=== PATIENT | male | born 1995 | race Caucasian/White ===

== ENCOUNTER 2020-07-13 00:16 | Inpatient (IN) | payer BC, SELFPAY ==
[~2020-07-13] VITALS: Ht 167.6 cm; Wt 81.6 kg
[2020-07-13 00:29] VITALS: BP 120/86
--- NOTE | 2020-07-13 00:33 | NUR ---
Dr. Maxwell examining patient.
[2020-07-13] MEDS ORDERED: ONDANSETRON 4 MG/2 ML VIAL IVP ONE (00:35)
[2020-07-13] MEDS ORDERED: MORPHINE SULFATE 4 MG/ML SYR IVP ONE ×2 (00:35→01:50)
[2020-07-13 00:48] LABS: BASOPHILS % (AUTO) 0.2 % (0.0-2.0); EOSINOPHILS % (AUTO) 0.1 % (0.0-4.0); HEMATOCRIT 43.1 % (36-52); HEMOGLOBIN 14.8 g/dL (12.0-18.0); LYMPHOCYTES # (AUTO) 1.5 K/uL (2.0-11.5); LYMPHOCYTES % (AUTO) 8.9 % (20.5-51.1); MEAN CORPUSCULAR HEMOGLOBIN 32 pg (27-31); MEAN CORPUSCULAR HGB CONC 34 g/dL (33-37); MEAN CORPUSCULAR VOLUME 93.4 fL (80-94); MONOCYTES % (AUTO) 5.7 % (1.7-9.3); NEUTROPHILS # (AUTO) 14.4 K/uL (1.8-7.7); NEUTROPHILS % (AUTO) 85.1 % (42.2-75.2); PLATELET COUNT (AUTO) 190 K/uL (140-450); RED BLOOD CELL COUNT(AUTO) 4.62 MIL/uL (4.20-6.10); RED CELL DISTRIBUTION WIDTH 13.9 % (11.6-13.7); WHITE BLOOD COUNT (AUTO) 16.9 K/uL (4.8-10.8)
--- NOTE | 2020-07-13 00:59 | NUR ---
PT TAKEN TO CT SCAN VIA WHEELCHAIR
[2020-07-13 01:12] LABS: ALBUMIN 4.2 g/dL (3.4-5.0); ANION GAP 14.5 (8-16); CARBON DIOXIDE 26.1 mmol/L (21-32); CREATININE 0.9 mg/dL (0.6-1.3); POTASSIUM 3.6 mmol/L (3.5-5.1); TOTAL BILIRUBIN 0.7 mg/dL (0.0-1.0)
[2020-07-13] MEDS ORDERED: metroNIDAZOLE 500 MG/NS PREMIX 100 ML IV ONE (01:45)
[2020-07-13] MEDS ORDERED: NACL 0.9% 1,000 ML IV ONE ×2 (01:45→03:30)
[2020-07-13] MEDS ORDERED: cefTRIAXone 1,000 MG VIAL ONE (01:55)
--- NOTE | 2020-07-13 02:49 | NUR ---
JEAN MARIE SWAB COLLECTED AND SENT TO LAB
[2020-07-13] MEDS ORDERED: MORPHINE SULFATE 10 MG/ML VIAL IVP ONE (03:30)
--- NOTE | 2020-07-13 04:12 | NUR ---
PT RESTING IN BED, EYES CLOSED, RESPIRATIONS EVEN AND UNLABORED. CHEST RISE IS SYMMETRICAL. WILL CONTINUE TO MONITOR.
--- NOTE | 2020-07-13 05:00 | NUR ---
PT AMBULATED TO RESTROOM, STEADY GAIT
--- NOTE | 2020-07-13 05:02 | NUR ---
PT RETURNED TO [facility], STEADY GAIT
[2020-07-13] MEDS ORDERED: EMTR1TAB13 PO (06:45)
--- NOTE | 2020-07-13 07:03 | NUR ---
REPORT GIVEN TO MELVIN BARRAGAN FOR CONTINUITY OF CARE
[2020-07-13 08:10] VITALS: BP 123/51
--- NOTE | 2020-07-13 08:10 | NUR ---
PT TAKEN TO OR WITH YUNG GUALLPA AND YUNG MOLINA VIA [facility]DIS.
[2020-07-13] MEDS ORDERED: BUPIVACAINE-MPF/EPI 0.5% 30 ML VIAL INJ ONE (08:23)
[2020-07-13] MEDS ORDERED: LIDOCAINE 2% 100 MG/5 ML SYR IVP ONE (08:45)
[2020-07-13] MEDS ORDERED: fentaNYL citrate 0.05 MG/ML VIAL ONE (08:45)
[2020-07-13] MEDS ORDERED: MIDAZOLAM 2 MG/2 ML VIAL ONE (08:45)
[2020-07-13] MEDS ORDERED: SEVOFLURANE 250 ML BTL INH ONE (08:45)
[2020-07-13] MEDS ORDERED: PROPOFOL 200 MG/20 ML VIAL IV ONE (08:45)
[2020-07-13] MEDS ORDERED: KETOROLAC 30 MG/ML VIAL ONE (08:45)
[2020-07-13] MEDS ORDERED: GLYCOPYRROLATE 0.2 MG/ML VIAL ONE (08:45)
[2020-07-13] MEDS ORDERED: DEXAMETHASONE 4 MG/ML VIAL ONE (08:45)
[2020-07-13] MEDS ORDERED: ROCURONIUM 50 MG/5 ML VIAL IV ONE (08:45)
[2020-07-13] MEDS ORDERED: METOCLOPRAMIDE 10 MG/2 ML INJ VIAL ONE (08:45)
[2020-07-13] MEDS ORDERED: NEOSTIGMINE 1:1000 10 MG/10 ML VIAL ONE (08:45)
[2020-07-13] MEDS ORDERED: SUCCINYLCHOLINE CHLORIDE 200 MG/10 ML VIAL IVP ONE (08:45)
[2020-07-13] MEDS ORDERED: ceFAZolin 1,000 MG VIAL ONE (08:50)
[2020-07-13] MEDS ORDERED: HYDROmorphone 1 MG/ML AMP IVP PRN ×2 (08:55→09:45)
[2020-07-13] MEDS ORDERED: traMADol 50 MG TAB PO SCH (09:00)
[2020-07-13] MEDS ORDERED: POTASSIUM CHLORIDE 10 MEQ TABER PO PRN (09:05)
[2020-07-13] MEDS ORDERED: ACETAMINOPHEN 325 MG TAB PO PRN (09:05)
[2020-07-13] MEDS ORDERED: NACL 0.9% 1,000 ML IV SCH (09:05)
[2020-07-13] MEDS ORDERED: DOCUSATE SODIUM 100 MG GELCAP PO PRN (09:05)
[2020-07-13] MEDS ORDERED: ZOLPIDEM 5 MG TAB PO PRN (09:05)
[2020-07-13] MEDS ORDERED: ONDANSETRON 4 MG/2 ML VIAL IM/IVP PRN (09:05)
[2020-07-13] MEDS ORDERED: guaiFENesin DM 200/20 MG-10 ML 10 ML UDC PO PRN (09:05)
[2020-07-13] MEDS ORDERED: HYDROcodone/APAP 7.5/325 MG 1 TAB PO PRN (09:05)
[2020-07-13] MEDS ORDERED: diphenhydrAMINE 50 MG/ML VIAL IVP PRN (09:45)
[2020-07-13] MEDS ORDERED: LACTATED RINGERS 1,000 ML IV SCH (09:45)
[2020-07-13] MEDS ORDERED: ONDANSETRON 4 MG/2 ML VIAL IVP PRN (09:45)
[2020-07-13] MEDS ORDERED: MEPERIDINE 25 MG/ML SYR IVP PRN (09:45)
--- NOTE | 2020-07-13 10:35 | NUR ---
RECEIVED PT FROM OR NURSE. PT STANDING AND AMBULATING. PT IS STABLE. PT HAS LAC 20G, PT IS S/P LAP APPENDECTOMY WITH 3 ABDOMINAL INCISION WITH DERMABOND IZABEL. INTRODUCE PT TO ROOM. OBTAIN MRSA SWAB. WILL MONITOR PT'S VITAL SIGNS PER POST-OP PROTOCOL. SAFETY MEASURES IN PLACE, WILL CONTINUE TO MONITOR.
[2020-07-13 10:47] LABS: PROTHROMBIN TIME 10.4 secs (10.8-13.4)
[2020-07-13 10:58] LABS: CHOL/HDL RATIO 3.4 (1-4.5); FREE T4 (FREE THYROXINE) 1.1 ng/dL (0.76-1.46); MAGNESIUM 1.5 mg/dL (1.8-2.4); PHOSPHORUS 2.6 mg/dL (2.5-4.9); THYROID STIMULATING HORMONE 0.99 uIU/mL (0.34-3.74)
[2020-07-13] MEDS ORDERED: PIPERACILLIN/TAZOBACTAM 3.375 GM in DEXTROSE 5% 50 ML IV SCH (12:00)
--- NOTE | 2020-07-13 12:11 | NUR ---
PATIENT HAS BEEN SCREENED AND CATEGORIZED MODERATE NUTRITION RISK. PATIENT WILL BE SEEN WITHIN 3-5 DAYS OF ADMISSION. 07/16/20 07/18/20 PAULETTE DELVALLE MBA, RD
--- NOTE | 2020-07-13 12:55 | NUR ---
PT ASKED IF HE CAN BE DISCHARGED FROM THE HOSPITAL. NOTIFIED DR FREDERICK. PER DR FREDERICK, PT NEEDS TO STAY ONE MORE NIGHT WBC ELEVATED. INFORMED PT. PT STATES HE CAN NOT AFFORD TO PAY FOR HOSPITAL STAY HIS INSURANCE IS EXPENSIVE. 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 PER PT, ADMITTING INFORMED PT HE CAN LEAVE AMA. INFORMED PT THAT HE IS NOT STABLE AND HE WOULD NEED TO SIGN A AMA FORM AND DR FREDERICK NEEDS TO BE NOTIFIED. PT STATES HE WANTS TO LEAVE AMA. NOTIFIED DR FREDERICK AND RECEIVED MESSAGE TO NOTIFY PT HE IS NOT STABLE AND HE NEEDS TO STAY ONE MORE NIGHT HE IS SEPTIC AND HE CAN IF HE LEAVES. INFORMED PT OF WHAT DR FREDERICK STATED. PT SAID HE STILL WANTS TO LEAVE AMA. PT SIGNED AMA FORM. IV REMOVED. ESCORTED PT TO THE FRONT LOBBY.
[2020-07-14] MEDS ORDERED: PANTOPRAZOLE 40 MG TABEC PO SCH (09:00)
[2020-07-15 07:06] LABS: T4 (THYROXINE) 6.4 ug/dL (4.5-12.0)
[2020-07-15] MEDS ORDERED: MEPERIDINE 25 MG/ML SYR IVP PRN ×2 (10:05)
[2020-07-15] MEDS ORDERED: diphenhydrAMINE 50 MG/ML VIAL IVP PRN ×2 (10:05)
[2020-07-15] MEDS ORDERED: BLOOD GLUCOSE MONITORING 1 DEV DEV FS ONE ×2 (10:05)
[2020-07-15] MEDS ORDERED: LACTATED RINGERS 1,000 ML IV SCH ×2 (10:05)
[2020-07-15] MEDS ORDERED: ONDANSETRON 4 MG/2 ML VIAL IVP PRN ×2 (10:05)
[2020-07-15] MEDS ORDERED: HYDROmorphone 1 MG/ML AMP IVP PRN ×2 (10:05)
== END 2020-07-13 11:55 | disposition left against medical advice (07) | DRG 854 ==
LOC: MED 00:16 → MMU 03:01 → MTU 04:21
PROVIDERS: ADMIT Family Medicine; ATTEND Family Medicine
PROC: 0DTJ4ZZ Resection of Appendix, Percutaneous Endoscopic Approach (ICD-10-PCS; principal; 2020-07-13 08:30)
DX: A41.9 Sepsis, unspecified organism (principal); K35.80 Unspecified acute appendicitis; K76.0 Fatty (change of) liver, not elsewhere classified; Z20.828 Contact with and (suspected) exposure to other viral communicable diseases
CPT/HCPCS: 36415; 80053; 82150; 83036; 83690; 83735; 83880; 84100; 84436; 84439; 84443; 84479; 84484; 85025; 85610; 85730; 86886; 86900; 86901; 87081; 96365; 96368; 96375; 96376; 99285; J0330; J0690; J0696; J1100; J1885; J2001; J2250; J2270; J2405; J2543; J2704; J2710; J2765; J3010; J3490; J7060